=== PATIENT | male | born 1960 | race Native Hawaiian/Other Pacific Islander ===

== ENCOUNTER 2017-03-26 15:12 | Outpatient (CLI) | payer BC | END 2017-03-26 19:12 | disposition home or self-care (01) | LOC: US 15:12 | DX: R10.13 Epigastric pain (principal); R07.89 Other chest pain; N50.812 Left testicular pain | CPT/HCPCS: 36415; 82565; 84520; Q9963 ==

== ENCOUNTER 2021-01-23 08:20 | Outpatient (CLI) | payer BC | END 2021-01-23 19:41 | disposition home or self-care (01) | LOC: US 08:20 | PROVIDERS: ATTEND Physician Assistant | DX: I10 Essential (primary) hypertension (principal); R00.2 Palpitations; R22.40 Localized swelling, mass and lump, unspecified lower limb; E78.5 Hyperlipidemia, unspecified; I69.30 Unspecified sequelae of cerebral infarction ==

== ENCOUNTER 2023-02-15 14:28 | Outpatient (CLI) | payer BC | END 2023-02-15 19:17 | disposition home or self-care (01) | LOC: MRI 14:28 | PROVIDERS: ATTEND Orthopaedic Surgery | DX: M54.12 Radiculopathy, cervical region (principal) ==

== ENCOUNTER 2023-02-27 08:56 | Outpatient (CLI) | payer BC | END 2023-02-27 19:01 | disposition home or self-care (01) | LOC: RESP 08:56 | PROVIDERS: ATTEND Physician Assistant | DX: R53.83 Other fatigue (principal); R01.1 Cardiac murmur, unspecified ==